=== PATIENT | female | born 1975 | race Caucasian/White ===

== ENCOUNTER 2020-12-20 09:49 | Day surgery (SDC) | payer BC ==
[~2020-12-20] VITALS: Ht 157.5 cm; Wt 90.7 kg
[~2020-12-20 09:49] MED LIST: ESTRACE1 MG PO; ESTRAGEN TD; LEXAPRO20 MG PO; PROVERA2.5 MG PO
[2020-12-20 10:23] LABS: HEMATOCRIT 44.9 % (36.0-48.0); HEMOGLOBIN 15.4 g/dL (12-16); MCH 31.5 pg (26.0-34.0); MCHC 34.2 g/dL (31.0-37.0); MCV 92.2 fL (80.0-100.0); MEAN PLATELET VOLUME 6.9 fL (7.4-10.4); RBC 4.87 10x6/uL (4.00-5.40); RDW 12.8 % (11.5-14.5); WBC 7.8 10x3/uL (4.8-10.8)
[2020-12-20 10:32] LABS: HCG SERUM NEGATIVE (NEGATIVE)
[2020-12-20 10:36] VITALS: BP 106/77; Ht 157.5 cm; Wt 90.7 kg
--- NOTE | 2020-12-20 12:58 | NUR ---
AT BEDSIDE 1310 DC TEACHING COMPLETE TO PT AND . VERBALIZED UNDERSTANDING 1335 PIV DC'D WITH CATHETER INTACT. HELPING PT TO DRESS. 1355 UPON REQUEST, PT GIVEN COFFEE WITH CREAMER TO GO. DC'D VIA WC ACCOMPANIED BY THIS NURSE WITH ALL BELONGINGS TO POV WITH DRIVING.
--- NOTE | 2020-12-25 15:00 | OP ---
PATIENT NAME: CHRISTIANO C[place] MEDICAL RECORD: [id number] :71 LOCATION:[facility] ADMISSION DATE: SURGEON: GRACE SMALL DATE OF OPERATION: 12/20/2020 SURGEON: Grace Small DPM PREOPERATIVE DIAGNOSIS: Plantar fasciitis, right foot. POSTOPERATIVE DIAGNOSIS: Plantar fasciitis, right foot. PROCEDURE: Partial plantar fasciotomy, right foot. ANESTHESIA: Local with monitored anesthesia care. HEMOSTASIS: Pneumatic ankle tourniquet inflated to 250 mmHg. ESTIMATED BLOOD LOSS: Minimal. MATERIALS: 3-0 nylon. INJECTABLES: A 50:50 mix of 0.25% Marcaine plain and 0.25% Marcaine with epinephrine and intraoperatively 2 cc of 1% lidocaine. The patient has a longstanding history of plantar fasciitis. She has not improved with conservative measures. She has been wearing a boot for several weeks now without improvement. She is here today for surgical correction of this chronically painful condition. We again reviewed the risks and benefits of the procedure. Complications were discussed. All questions were answered. She was appropriately consented for the above-mentioned procedure. DESCRIPTION OF PROCEDURE: The patient was brought into the operating room and placed on the operating table in a supine position. A timeout was called by Dr. Small who identified the patient, the surgical site, and the surgery to be performed. Once appropriate anesthesia was obtained, the foot was prepped and draped in the usual aseptic manner. The pneumatic ankle tourniquet was inflated to 250 mmHg around the well-padded right ankle. PROCEDURE: Partial plantar fasciotomy, right foot. Attention was directed to the plantar surface of the right foot over the medial calcaneal tubercle area where a 3-cm linear incision was made. This incision was carried deep through soft tissue with care being taken to retract all vital neurovascular structures. All bleeders were cauterized along the way. The subcutaneous fat was then divided and the plantar fascia was identified at the base of the incision. Next, utilizing a fresh 15 blade, the plantar fascia was sharply transected. I transected approximately one-half of the plantar fascia. The surgical site was then inspected for any remaining tight fascial bands and any of that were noted were sharply transected. The surgical site was then irrigated with copious amounts of normal sterile saline via bulb syringe. The skin was reapproximated and coapted utilizing 3-0 Vicryl. OPERATIVE REPORT [id number] MEGHACHRISTIANO A dressing consisting of Xeroform, 4 x 4's, Kerlix, and an Sha bandage was applied to the right foot. The pneumatic ankle tourniquet was released and capillary refill time was immediate to all digits of the right foot. The patient tolerated the procedure and anesthesia well. She left the operating room with vital signs stable and capillary refill time intact. The patient will be discharged home with instructions to ice and elevate the right foot. She already has a boot from previous treatment. She is to wear that at all times. She has a knee scooter, which I advised her to use for the first few weeks after surgery. There were no complications with the procedure and we will follow up with her next week. She was provided with my cell phone number for any after hours complications. TRANSINT:[id number] Voice Confirmation ID: [id number] DOCUMENT ID: [id number] GRACE SMALL at 1500 CC: [id number] DICTATION DATE: 12/20/20 1436 NETWORK PROFESSIONAL: 12/20/20 1500 [facility] 12/20/20 [place] [id number] [place] [id number]
== END 2020-12-20 13:55 | disposition home or self-care (01) ==
LOC: D.OPS 09:49
PROVIDERS: Anesthesiology; ATTEND Podiatrist
DX: M72.2 Plantar fascial fibromatosis (principal)